=== PATIENT | female | born 1945 | race Caucasian/White ===

== ENCOUNTER 2019-08-01 00:13 | Outpatient (CLI) | payer OTHER, SELFPAY ==
[2019-08-04 18:54] LABS: SARS-CoV-2 RNA PCR Negative
== END 2019-08-01 00:14 | disposition home or self-care (01) ==
LOC: ANHCOVIDDT 00:13
PROVIDERS: PCP Internal Medicine; Visit Provider Otolaryngology
DX: Z01.812 Encounter for preprocedural laboratory examination (principal); Z11.59 Encounter for screening for other viral diseases
CPT/HCPCS: 36415; 80048; 87635; C9803; U0003

== ENCOUNTER 2019-08-01 08:42 | Outpatient (CLI) | payer OTHER, SELFPAY ==
[2019-08-01 09:33] LABS: Blood Urea Nitrogen 17 mg/dL (7-17); Calcium 9.1 mg/dL (8.4-10.2); Carbon Dioxide 29 mmol/L (22-30); Chloride 107 mmol/L (98-107); Estimated Glomerular Filt Rate > 60; Glucose 118 mg/dL (65-105); Potassium 3.8 mmol/L (3.4-5.0); Sodium 140 mmol/L (137-145)
== END 2019-08-01 08:43 | disposition home or self-care (01) ==
PROVIDERS: Anesthesiology; PCP Internal Medicine; Visit Provider Otolaryngology
DX: E11.9 Type 2 diabetes mellitus without complications (principal)
CPT/HCPCS: 36415; 80048